=== PATIENT | female | born 1995 | race Caucasian/White ===

== ENCOUNTER 2017-09-23 13:07 | Emergency (ER) | payer SELFPAY ==
[2017-09-23 13:12] VITALS: BMI 21.9
[2017-09-23 13:16] VITALS: BP 104/67; PULSE 64; RESP 18; TEMP 97.6; O2SAT 100
--- NOTE | 2017-09-23 13:32 | C.PDOC ---
History Of Present Illness 22yo otherwise well female, presents to ED for evaluation of left sided chest pain since earlier today. 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 She denies any trauma, injuries, shortness of breath. No other complaints. Time Seen by Provider: 09/23/17 13:27 Chief Complaint (Nursing): Chest Pain History Per: Patient History/Exam Limitations: no limitations Onset/Duration Of Symptoms: Hrs Current Symptoms Are (Timing): Still Present Quality: Sharp, "Pain" Past Medical History Reviewed: Historical Data, Nursing Documentation, Vital Signs Vital Signs: Last Vital Signs Temp 97.6 F 09/23/17 13:13 Pulse 64 09/23/17 13:13 Resp 18 09/23/17 13:13 BP 104/67 09/23/17 13:13 Pulse Ox 100 09/23/17 13:32 - Medical History PMH: No Chronic Diseases Surgical History: No Surg Hx Family History: States: No Known Family Hx - Social History Hx Alcohol Use: No Hx Substance Use: No - Immunization History Hx Tetanus Toxoid Vaccination: No Hx Influenza Vaccination: No Hx Pneumococcal Vaccination: No Review Of Systems Except As Marked, All Systems Reviewed And Found Negative. Constitutional: Negative for: Fever, Chills Cardiovascular: Positive for: Chest Pain. Negative for: Other (trauma, injury to chest) Respiratory: Negative for: Shortness of Breath Physical Exam - Physical Exam Appears: Non-toxic, No Acute Distress Skin: Normal Color, Warm, Dry Head: Normacephalic Eye(s): bilateral: Normal Inspection Neck: Normal ROM, Supple Chest: Symmetrical, Tenderness (digitally reproducible tenderness to left upper chest), Other (no rash noted to chest) Cardiovascular: Rhythm Regular Respiratory: Normal Breath Sounds Neurological/Psych: Oriented x3 ED Course And Treatment O2 Sat by Pulse Oximetry: 100 (RA) Pulse Ox Interpretation: Normal Medical Decision Making Medical Decision Making: digitally and positionally reproducable in a novelty twister tender, normal EKG, clear symmetrical lung sounds, c/w Costochondritis. Disposition Doctor Will See Patient In The: Office Counseled Patient/Family Regarding: Studies Performed, Diagnosis - Disposition Referrals: [facility] [Outside] Disposition: HOME/ ROUTINE Disposition Time: 13:32 Condition: GOOD Additional Instructions: bolsa de hielo 1/2 hora por hora, nada caliente Ibuprofeno 400-600 mg cada 6 horas latrell necessario No levanta nada pesada por 1 semana. Sigue en la [facility] latrell necessario Instructions: Costochondritis Forms: [employer] (Uzbek) Print Language: SAMI - Clinical Impression Clinical Impression: Chest wall discomfort - Scribe Statement The provider has reviewed the documentation as recorded by the Scribe (Charline Rivera) Provider Attestation: All medical record entries made by the Scribe were at my direction and personally dictated by me. I have reviewed the chart and agree that the record accurately reflects my personal performance of the history, physical exam, medical decision making, and the department course for this patient. I have also personally directed, reviewed, and agree with the discharge instructions and disposition.
--- NOTE | 2017-09-24 12:36 | CARD ---
APPROVED REPORT EKG Measurement Heart [id number] <Conclusion> Normal sinus rhythm Normal ECG
== END 2017-09-23 13:51 | disposition home or self-care (01) ==
LOC: C.ER 13:07
DX: R07.89 Other chest pain (principal)

== ENCOUNTER 2018-11-03 21:19 | Emergency (ER) | payer SELFPAY | END 2018-11-03 22:08 | disposition home or self-care (01) | LOC: C.ER 21:19 ==